=== PATIENT | male | born 1940 | race Caucasian/White ===

== ENCOUNTER 2017-12-01 06:39 | Emergency (ER) ==
[2017-12-01 06:46] VITALS: BP 179/102; TEMP 97.1; BMI 37.5
--- NOTE | 2017-12-01 08:07 | CT ---
EXAM: CT Abdomen without contrast. CT Pelvis without contrast. HISTORY: Right-sided abdominal pain. Constipation. COMPARISON: None available. TECHNIQUE: Multiple axial images of the abdomen and pelvis were obtained without intravenous contras t. Images were reformatted in the sagittal and coronal plane. FINDINGS: Please note that evaluation of the abdominal and pelvic structures is limited due to lack of intravenous contrast. Right lower lobe calcified granulomatous changes noted. Ground-glass opacities in the left lower lob e likely relate to subsegmental atelectasis. Advanced arthritic changes of the left hip are present. There has been previous right hip arthroplas ty. L4-S1 posterior fusion changes noted with extensive degenerative changes throughout the thoracol umbar spine. The liver, gallbladder, pancreas, spleen, and adrenal glands demonstrate normal contour. Nonobstruct ing left renal calculus measuring up to 0.5 cm noted without hydronephrosis. There is mild right hydronephrosis/hydroureter with associated fat stranding secondary to a 0.3 cm ob structing calculus near the right ureteral vesicle junction. Moderate amount of stool present in the right colon. There is no evidence for bowel obstruction or a cute inflammation. Colonic diverticulosis noted. The appendix is normal. Mild prostatic enlargement noted. Bladder is not well distended. Atherosclerotic calcifications present. No free fluid or fr ee air identified. IMPRESSION: 1. Mild right hydronephrosis secondary to a 0.3 cm distal right ureteral calculus near the ureteral vesicle junction. 2. Left nephrolithiasis. 3. Moderate amount of stool in the colon. 4. Diverticulosis.
--- NOTE | 2017-12-01 09:05 | ED.PDOC ---
General ED Provider: Dr. JOHANA JONES Chief Complaint: Abdominal Pain Stated Complaint: right lower abdominal pain, right flank pain Time Seen by Physician: 07:00 Mode of Arrival: Walk-In Information Source: Patient, Family Exam Limitations: No limitations Primary Care Provider: VICENTE FISCHER Nursing and Triage Documentation Reviewed and Agree: Yes Does patient meet sepsis criteria?: No System Inflammatory Response Syndrome: Not Applicable Sepsis Protocol: For patient's 13 years and over: Temp is 96.8 and below OR 101 and greater Pulse >90 BPM Resp >20/minute Acutely Altered Mental Status Are patient's symptoms suggestive of a new infection, such as: -Pneumonia -Skin, Soft Tissue -Endocarditis -UTI -Bone, Joint Infection -Implantable Device -Acute Abdominal Infection -Wound Infection -Meningitis -Blood Stream Catheter Infection -Unknown GI Complaint Exam - Abdominal Pain Complaint/Exam Onset: Gradual Duration: 1 day worse this AM Symptoms Are: Still present Timing: Intermittent Initial Severity: Moderate Current Severity: Moderate Location of Pain: RLQ, Suprapubic Radiates To: Reports: Flank (right) Character: Reports: Cramping Aggravating: Reports: None Alleviating: Reports: None Associated Signs and Symptoms: Reports: Back pain (see above ). Denies: Diaphoresis, Fever, Cough, Chest pain, Dizziness, Constipation, Blood in stool, Dysuria, Urinary frequency, Decreased urine output, Decreased appetite, Discharge, Nausea, Vomiting, Diarrhea, Decreased activity AAA Risk Factors: Reports: Hypertension Cardiac Risk Factors: Reports: Hypertension Testicular Torsion Risk Factors: Reports: None Surgical Obstruction Risk Factors: Reports: None Related Surgical History: Reports: None Abdominal Findings: Present: None Differential Diagnoses: Appendicitis, Bowel Obstruction, Constipation, Diverticulitis, Renal Colic Review of Systems - Review Of Systems Constitutional: Reports: No symptoms Eyes: Reports: No symptoms Ears, Nose, Mouth, Throat: Reports: No symptoms Respiratory: Reports: No symptoms Cardiac: Reports: No symptoms GI: Reports: Abdominal pain : Reports: Flank pain (right) Musculoskeletal: Reports: No symptoms Skin: Reports: No symptoms Neurological: Reports: No symptoms Endocrine: Reports: No symptoms Hematologic/Lymphatic: Reports: No symptoms All Other Systems: Reviewed and Negative Past Medical History - Past Medical History Previously Healthy: No Endocrine: Reports: Dyslipidemia Cardiovascular: Reports: Hypertension Respiratory: Reports: None Hematological: Reports: None Gastrointestinal: Reports: None Genitourinary: Reports: None Neuro/Psych: Reports: CVA Musculoskeletal: Reports: Arthritis, Back Pain Cancer: Reports: None - Surgical History General Surgical History: Reports: Orthopedic (right hip replacement), Back Surgery - Family History Family History: Reports: None - Social History Smoking Status: Former smoker Hx Substance Use: No Alcohol Screening: None - Immunizations Tetanus Shot up to Date: Yes Physical Exam - Physical Exam Appearance: Well-appearing, No pain distress, Well-nourished Eyes: RIGOBERTO, EOMI, Conjunctiva clear ENT: Ears normal, Nose normal, Oropharynx normal Respiratory: Airway patent, Breath sounds clear, Breath sounds equal, Respirations nonlabored Cardiovascular: RRR, Pulses normal, No rub, No murmur GI/: Soft, Nontender, No masses, Bowel sounds normal, No Organomegaly Musculoskeletal: Normal strength, ROM intact, No edema, No calf tenderness Skin: Warm, Dry, Normal color Neurological: Sensation intact, Motor intact, Reflexes intact, Cranial nerves intact, Alert, Oriented Psychiatric: Affect appropriate, Mood appropriate Interpretation - Radiology Interpretation Radiology Interpretation By: Radiologist Radiology Results: Positive (3mm right isded stone near ureter junction) Critical Care Note - Critical Care Note Total Time (mins): 0 Course - Course Hematology/Chemistry: 12/01/17 07:25 12/01/17 07:25 Orders, Labs, Meds: Lab Review 12/01/17 12/01/17 12/01/17 07:20 07:25 07:25 WBC 9.00 RBC 4.74 Hgb 14.8 Hct 44.7 MCV 94.3 H MCH 31.2 H MCHC 33.1 RDW Coeff of Leigha 12.6 Plt Count 237 Immature Gran % (Auto) 1.0 Neut % (Auto) 70.5 Lymph % (Auto) 14.6 [place] % (Auto) 9.7 Eos % (Auto) 3.4 Baso % (Auto) 0.8 Immature Gran # (Auto) 0.1 Neut # (Auto) 6.4 Lymph # (Auto) 1.3 [place]ard # (Auto) 0.9 Eos # (Auto) 0.3 Baso # (Auto) 0.1 Sodium 141 Potassium 4.4 Chloride 108 H Carbon Dioxide 23 Anion Gap 14.4 BUN 21 H Creatinine 1.14 H Estimated GFR (MDRD) 62.00 BUN/Creatinine Ratio 18.42 Glucose 107 H Calcium 9.0 Total Bilirubin 0.5 AST 31 ALT 23 Alkaline Phosphatase 88 Total Protein 7.5 Albumin 4.0 Globulin 3.5 Albumin/Globulin Ratio 1.14 Amylase 70 Lipase 44 Urine Color Yellow Urine Clarity Clear Urine pH 5.5 Ur Specific [place] 1.025 Urine Protein Negative Urine Glucose (UA) Negative Urine Ketones Negative Urine Blood 2+ Urine Nitrite Negative Urine Bilirubin Negative Urine Urobilinogen 0.2 Ur Leukocyte Esterase Negative Urine Microscopic RBC 10-20 Ur Squamous Epith Cells Not present Orders Category Date Time Status AMYLASE Stat LAB 12/01/17 07:25 Completed CBC W/ AUTO DIFF Stat LAB 12/01/17 07:25 Completed COMPREHENSIVE METABOLIC PANEL Stat LAB 12/01/17 07:25 Completed LIPASE Stat LAB 12/01/17 07:25 Completed URINALYSIS C & S IF INDICATED Stat LAB 12/01/17 07:[address] ABDOMEN/PELVIS WO CONTRAST Stat RADS 12/01/17 07:09 Completed Vital Signs: Temp Pulse Resp BP Pulse Ox 12/01/17 06:40 97.1 F L 72 18 179/102 H 94 L Departure - Departure Time of Disposition: 09:04 Disposition: HOME SELF-CARE Discharge Problem: Abdominal pain, Renal stones Instructions: Renal Colic (ED), Flank Pain (ED), How to Strain Your Urine (ED) , Kidney Stones (ED) Condition: Good Pt referred to PMD for follow-up: Yes IPMP verified?: No Additional Instructions: Please call your Family Physician as soon as possible to schedule a follow-up appointment. YOU HAVE A KIDNEY STONE ON THE RIGHT SIDE . YOU MUST SEE YOUR DOCTOR LIUDMILA. IF YOU HAVE PROBLEMS LIKE CANT URINATE AT ALL. BLOOD IN THE URINE, FEVER YOU MUST RETURN OR SEE OR SEE YOUR M.D. KIDNEY STONE OF THIS SIZE IS PASSABLE BUT NOTHING IN LIFE IS 100% SO DO NOT POST POND PROBLEMS OR BAD OUT COME CAN HAPPEN LIKE KIDNEY INJURY OR EVEN KIDNEY LOSS Allergies/Adverse Reactions: Allergies iodine Adverse Reaction (Verified 06/30/15 19:43) Penicillins Adverse Reaction (Verified 06/30/15 19:43) Home Medications: Ambulatory Orders Bumetanide [Bumex] 1 mg PO QDAC 03/11/14 Celecoxib [Celebrex] 200 mg PO BID 03/11/14 Clopidogrel Bisulfate [Plavix] 75 mg PO DAILY 03/11/14 Febuxostat [Uloric] 40 mg PO DAILY 03/11/14 Gemfibrozil [Lopid] 600 mg PO BID 03/11/14 Lisinopril 20 mg PO DAILY 03/11/14 Oxycodone HCl [Oxycontin] 40 mg PO BID 03/11/14 Oxycodone HCl/Acetaminophen [Percocet 10-325 mg Tablet] 1 tab PO QID PRN Ranitidine HCl [Zantac] 150 mg PO BIDAC 03/11/14
[2017-12-01] MEDS ORDERED: TORADOL IM STA (09:09)
== END 2017-12-01 09:43 | disposition home or self-care (01) ==
LOC: ED 06:39
DX: N20.0 Calculus of kidney (principal); I10 Essential (primary) hypertension; E78.5 Hyperlipidemia, unspecified; Z86.73 Personal history of transient ischemic attack (TIA), and cerebral infarction without residual deficits
CPT/HCPCS: 36415; 80053; 81001; 82150; 83690; 85025; 96372; 99283

== ENCOUNTER 2018-08-30 08:07 | Outpatient (CLI) | payer OTHER ==
--- NOTE | 2018-08-30 09:14 | DI ---
EXAM: Two views of the right knee. History: Right knee pain. Findings: No acute fracture or dislocation. Moderate to severe narrowing of the medial compartment. Moderate narrowing of the patellofemoral compartment and mild narrowing of the lateral compartment. There is marginal sclerosis and osteophyte formation. 3.7 cm ossification seen within the posterio r soft tissues. Impression: 1. No acute osseous abnormality. 2. 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 3. Large ossification seen within the posterior soft tissues of unknown etiology or clinical signifi cance.
--- NOTE | 2018-08-30 09:16 | DI ---
EXAM: Two views of the left knee. History: Left knee pain. Findings: No acute fracture or dislocation. Mild to moderate tricompartmental joint space narrowing with small osteophytes. No abnormal calcifications or radiopaque foreign bodies. Impression: 1. No acute osseous abnormality. 2. Mild to moderate tricompartmental osteoarthritis
--- NOTE | 2018-08-30 09:17 | DI ---
EXAM: Two views of the left hip. History: Left hip pain. Findings: No acute fracture or dislocation. 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 Impression: 1. No acute osseous abnormality. 2. Severe end-stage degenerative changes of the left hip joint
--- NOTE | 2018-08-30 09:18 | DI ---
EXAM: Two views of the right hip. History: Right hip pain. Findings: No acute fracture or dislocation. Grossly intact right total hip arthroplasty hardware. Partially visualized postsurgical changes of the sacrum. Impression: No acute osseous abnormality
--- NOTE | 2018-08-30 09:23 | DI ---
EXAM: Seven views of the lumbar spine. History: Lower back pain. Findings: Severe end-stage degenerative changes of the left hip joint. Hardware seen within the rig ht hip. Air distended loop of colon with U shape. Scattered colonic stool. Atherosclerotic vascula r calcifications. Grossly intact posterior fusion hardware from L4-S1. 8mm anterolisthesis of L4 on L5. Severe multilevel disc space narrowing with endplate sclerosis and osteophyte formation. No ac beba fracture. No instability identified with flexion or extension. Impression: 1. Unexpected finding: Dilated loop of colon could represent ileus but cannot exclude sigmoid volvul us. Recommend further evaluation with CT abdomen pelvis with IV contrast. 2. Grossly intact hardware. 3. Grade 1 anterolisthesis of L4 on L5. 4. Severe degenerative disc disease. 5. Atherosclerotic vascular disease. 6. Severe end-stage arthritis of the left hip joint
== END 2018-08-30 08:08 | disposition home or self-care (01) ==
LOC: RAD 08:07 → LAB 08:08
PROVIDERS: ATTEND Pain Medicine Interventional Pain Medicine
DX: M16.0 Bilateral primary osteoarthritis of hip (principal); M17.0 Bilateral primary osteoarthritis of knee; M51.16 Intervertebral disc disorders with radiculopathy, lumbar region; M51.36 Other intervertebral disc degeneration, lumbar region
CPT/HCPCS: 36415; 82565

== ENCOUNTER 2018-09-06 10:38 | Outpatient (CLI) ==
--- NOTE | 2018-09-06 13:27 | CT ---
EXAM: CT of the abdomen pelvis without contrast History: Abdominal pain with difficulty swallowing. Comparison: CT abdomen pelvis 12/01/2017 Technique: Multiplanar CT images through the abdomen pelvis were obtained without the administration of IV contrast Findings: Heart is mildly enlarged. Lung bases are free of consolidation. Subsegmental atelectasis is seen within the lower lungs. No acute osseous abnormalities. Severe end-stage degenerative presley ges of the left hip joint. Right hip arthroplasty hardware is seen in place. Postsurgical changes o f the lumbosacral spine. Severe degenerative disc disease within the upper lumbar spine. Atherosclerotic vascular calcifications. No gallstones identified by CT. No peripancreatic inflamma tion. There is some atrophy of the pancreas. No focal liver or splenic lesions. 2 mm calculus with in the inferior pole of the right kidney. 2 mm calculus within the right renal pelvis. No hydroneph rosis. The distal ureters are not well seen due to streak artifact from the hip hardware. No bowel obstruction. No free air and no ascites. The bladder is not well seen due to the hip hardware but t here is no obvious bladder wall thickening. Prominent prostate. No perirectal inflammation. Coloni c diverticulosis. The visualized appendix is not dilated or inflamed. No abdominal aortic aneurysm. No pathologically enlarged lymph nodes. Impression: 1. No acute intra-abdominal or pelvic process. 2. Colonic diverticulosis. 3. Nonobstructing right nephrolithiasis. 4. Prominent prostate. 5. Atherosclerotic vascular disease. 6. Mild cardiomegaly. 7. Severe end-stage arthritis of the left hip joint
== END 2018-09-06 10:39 | disposition home or self-care (01) ==
LOC: RAD 10:38
PROVIDERS: ATTEND Family Medicine
DX: R93.5 Abnormal findings on diagnostic imaging of other abdominal regions, including retroperitoneum (principal); R10.9 Unspecified abdominal pain

== ENCOUNTER 2022-01-24 12:09 | Inpatient (IN) ==
[2022-01-24] MEDS ORDERED: NITROSTAT SL PRN (13:57)
[2022-01-24] MEDS ORDERED: ATROPINE SULFATE PFS IVP PRN (13:57)
[2022-01-24] MEDS ORDERED: TYLENOL PO PRN (13:57)
[2022-01-24 14:08] VITALS: BMI 40.4
[2022-01-24 14:15] LABS: BASOPHILS # (AUTO) 0.1 K/uL (0-0.2); BASOPHILS % (AUTO) 0.8 % (0.0-3.0); EOSINOPHILS # (AUTO) 0.3 K/ul (0.0-0.7); EOSINOPHILS % (AUTO) 3.8 % (0.0-7.0); HEMATOCRIT 44.6 % (42.0-52.0); HEMOGLOBIN 14.3 g/dl (14.0-18.0); IMMATURE GRANULOCYTE # (AUTO) 0.1 (0.0-1.0); IMMATURE GRANULOCYTE % (AUTO) 1.2 % (0.0-5.0); LYMPHOCYTES # (AUTO) 1.1 K/uL (0.60-3.4); LYMPHOCYTES % (AUTO) 14.3 (10.0-50.0); MEAN CORPUSCULAR HEMOGLOBIN 31.8 pg (27.0-31.0); MEAN CORPUSCULAR HGB CONC 32.1 (31.8-35.4); MEAN CORPUSCULAR VOLUME 99.1 fl (80.0-94.0); MONOCYTES # (AUTO) 0.6 K/uL (0.4-2.0); MONOCYTES % (AUTO) 7.8 (0-10); NEUTROPHILS # (AUTO) 5.6 K/ul (2.0-6.9); NEUTROPHILS % (AUTO) 72.1 % (42.2-75.2); PLATELET COUNT 193 10^3/uL (140-440); RDW COEFFICIENT OF VARIATION 13.7 % (11.6-14.8); WHITE BLOOD COUNT 7.81 K/ul (4.2-10.2)
[2022-01-24 14:38] LABS: ALANINE AMINOTRANSFERASE 18.3 U/L (0-50); ALBUMIN 3.46 g/dL (3.5-5.0); ALKALINE PHOSPHATASE 88.8 U/L (56-119); ASPARTATE AMINO TRANSFERASE 22.6 U/L (17-59); BILIRUBIN,TOTAL 0.49 mg/dL (0.2-1.3); BLOOD UREA NITROGEN 18.6 mg/dL (9-20); CALCIUM 8.68 mg/dL (8.4-10.2); CARBON DIOXIDE 27.5 mmol/L (22-30.0); CREATINE KINASE 74.4 U/L (55-170); CREATININE 0.93 mg/dL (0.60-1.10); GLUCOSE 169.7 mg/dL (74-106); POTASSIUM 3.85 mmol/L (3.5-5.1); SODIUM 143.8 mmol/L (134.5-145); TOTAL PROTEIN 6.49 g/dL (6.3-8.2)
[2022-01-24 14:49] LABS: TROPONIN I < 0.012 ng/ml (0.0000-0.120)
[2022-01-24 15:47] LABS: BILIRUBIN,URINE Negative (NEGATIVE); CLARITY,URINE Clear (CLEAR); COLOR,URINE Yellow (YELLOW); GLUCOSE, URINE (UA) Negative (NEGATIVE); KETONES,URINE Negative (NEGATIVE); LEUKOCYTE ESTERASE ,URINE Negative (NEGATIVE); NITRITE,URINE Negative (NEGATIVE); PH,URINE 5.5 (5-9); PROTEIN,URINE Negative (NEGATIVE); URINE, BLOOD 1+ (NEGATIVE)
[2022-01-24] MEDS: LASIX IVP SCH (16:49)
--- NOTE | 2022-01-24 19:17 | CT ---
EXAM: CT of the abdomen and pelvis without contrast. TECHNIQUE: CT of the abdomen and pelvis was performed without the use of contrast. Multiplanar refo rmats were performed. HISTORY: Abdominal pain COMPARISON: 09/06/2018 FINDINGS: Evaluation of solid organs and blood vessels is suboptimal without the benefit of contrast. Imaged lower thorax: Coronary atherosclerosis. Large pericardial fat pad. Liver: Unremarkable. Gallbladder/Bile Ducts: No biliary dilation. Gallbladder is unremarkable. Spleen: Unremarkable. Pancreas: Unremarkable. Adrenals: Unremarkable. Kidneys/Ureters: Nephrolithiasis in the lower poles bilaterally without obstruction. There is a stone within the right ureter at the ureterovesical junction. Bowel/mesentery/peritoneum: No bowel obstruction. Normal appendix. Diverticulosis is present. There is subtle stranding in the fat adjacent to the sigmoid colon proximally. This may be chronic however this is unchanged from older study of 2019 and may be patient's baseline. Correlate with site of pa in. Retroperitoneum/vessels: No aortic aneurysm. No adenopathy. Pelvis: Bladder wall contours normal. Bones/body wall: Advanced degenerative changes are present within the left hip. Multilevel lumbar dis ease is present. IMPRESSION: 1. Nephrolithiasis with a stone less than 3 mm in size in the distal right ureter without proximal ob structive changes. 2. Haziness in the pericolonic fat in the proximal sigmoid colon. While early diverticulitis is not excluded this appears to be unchanged from 2019. All CT scans are performed using dose optimization techniques as appropriate to the performed exam an d includes at least one of the following: Automated exposure control, adjustment of the mA and/or kV according to size, and the use of iterative reconstruction technique. All CT scans are performed using dose optimization techniques as appropriate to the performed exam an d include at least one of the following: Automated exposure control, adjustment of the mA and/or kV according t o size, and the use of iterative reconstruction technique.
[2022-01-24] MEDS: PEPCID PO SCH (19:20)
[2022-01-24] MEDS: FLOMAX PO SCH (21:07)
[2022-01-24] MEDS: CELEBREX PO SCH (21:07)
[2022-01-24 22:16] LABS: CREATINE KINASE 91.3 U/L (55-170)
[2022-01-24 22:31] LABS: TROPONIN I < 0.012 ng/ml (0.0000-0.120)
[2022-01-25 05:28] LABS: BASOPHILS # (AUTO) 0.1 K/uL (0-0.2); BASOPHILS % (AUTO) 0.8 % (0.0-3.0); EOSINOPHILS # (AUTO) 0.4 K/ul (0.0-0.7); HEMATOCRIT 44.8 % (42.0-52.0); HEMOGLOBIN 14.5 g/dl (14.0-18.0); IMMATURE GRANULOCYTE # (AUTO) 0.1 (0.0-1.0); LYMPHOCYTES # (AUTO) 1.4 K/uL (0.60-3.4); LYMPHOCYTES % (AUTO) 15.3 (10.0-50.0); MEAN CORPUSCULAR HEMOGLOBIN 31.6 pg (27.0-31.0); MEAN CORPUSCULAR HGB CONC 32.4 (31.8-35.4); MEAN CORPUSCULAR VOLUME 97.6 fl (80.0-94.0); MONOCYTES % (AUTO) 10.3 (0-10); NEUTROPHILS # (AUTO) 6.5 K/ul (2.0-6.9); NEUTROPHILS % (AUTO) 68.6 % (42.2-75.2); PLATELET COUNT 206 10^3/uL (140-440); RDW COEFFICIENT OF VARIATION 13.4 % (11.6-14.8); RED BLOOD COUNT 4.59 10^6/ul (4.70-6.10); WHITE BLOOD COUNT 9.42 K/ul (4.2-10.2)
[2022-01-25] MEDS: LASIX IVP SCH ×2 (05:45→17:38)
[2022-01-25] MEDS: PEPCID PO SCH ×2 (05:45→16:34)
[2022-01-25 05:46] LABS: ALBUMIN 3.59 g/dL (3.5-5.0); BILIRUBIN,TOTAL 0.69 mg/dL (0.2-1.3); BLOOD UREA NITROGEN 22.1 mg/dL (9-20); CALCIUM 8.57 mg/dL (8.4-10.2); CARBON DIOXIDE 28.7 mmol/L (22-30.0); CHLORIDE 108.8 mmol/L (98-107); GLUCOSE 81.5 mg/dL (74-106); POTASSIUM 3.5 mmol/L (3.5-5.1); SODIUM 142.9 mmol/L (134.5-145); TOTAL PROTEIN 6.78 g/dL (6.3-8.2)
--- NOTE | 2022-01-25 08:14 | CT ---
EXAMINATION: CT LUMBAR SPINE WITHOUT CONTRAST HISTORY: Low back pain and right-sided weakness. Prior fusion. TECHNIQUE: Computed tomography (CT) of the lumbar spine was performed according to standard protocol without intravenous contrast. Contrast Dose: None CT Dose Reduction Techniques Performed: Yes COMPARISON: Lumbar spine radiographs 08/30/2018 FINDINGS: Numbering/Segmentation: Last fully formed disk space is designated L5-S1. Alignment: Mild S-shaped curvature. Grade 1 retrolisthesis of T12-L3. Post-Surgical Changes/Hardware: L4-S1 posterior lumbar fusion with decompressive laminectomies. No h ardware fracture or loosening. Near complete anterior and posterior ankylosis. Bones: No acute fracture. Mild chronic anterior wedge compression deformities of T12, L1, L2, and L3 without retropulsion. Disk Spaces: Moderate to severe degenerative disc disease of T12-L3 with narrowing, endplate sclerosi s, and vacuum disc phenomenon. Soft Tissues: Postsurgical changes in the posterior paraspinal soft tissues from L3-S1, partially hoa ged due to metallic streak artifact. No fluid collection. Limited Abdomen: No renal lesion. Abdominal aorta is normal in caliber. Visualized Lower Thoracic Spine: There is severe bilateral T11-T12, moderate to severe bilateral T12- L1 neural foraminal stenosis. There is moderate T11-T12 and T12-L1 spinal canal stenosis. Level By Level Degenerative Changes: - L1-L2: Disc osteophyte complex. There is moderate to severe bilateral facet arthropathy. There is severe bilateral neural foraminal stenosis. There is moderate to severe spinal canal stenosis. - L2-L3: Disc osteophyte complex. There is severe bilateral facet arthropathy. There is severe bila teral neural foraminal stenosis. There is severe spinal canal stenosis. - L3-L4: Disc bulge. There is severe bilateral facet arthropathy. There is moderate bilateral neura l foraminal stenosis. There is moderate to severe spinal canal stenosis. - L4-L5: Fused level with facet hypertrophy. Poorly imaged due to metallic streak artifact. - L5-S1: Fused level with facet hypertrophy. Poorly imaged due to metallic streak artifact. Limited Sacrum/Pelvis: Mild degenerative changes of the bilateral sacroiliac joints with vacuum pheno russell. IMPRESSION: Advanced multilevel degenerative changes of the lower thoracic and lumbar spine as detailed including severe spinal canal stenosis at L2-L3 and multiple levels of severe neural foraminal stenosis. Postsurgical changes of L3-S1 posterior fusion and decompression. No hardware fracture or loosening. All CT scans are performed using dose optimization techniques as appropriate to the performed exam an d include at least one of the following: Automated exposure control, adjustment of the mA and/or kV according t o size, and the use of iterative reconstruction technique.
--- NOTE | 2022-01-25 08:15 | CT ---
EXAM: CT chest without intravenous contrast 01/24/2022. Sagittal and coronal reformatted images obt ained HISTORY: Shortness of air COMPARISON: 01/23/2022 FINDINGS: The heart size appears within normal limits. There is no pericardial effusion. There is no pulmonary consolidation. No pleural effusion. No pneumothorax. Limited views of the up per abdomen shows no acute abnormality. There is no acute osseous abnormality. IMPRESSION: No acute cardiopulmonary process. All CT scans are performed using dose optimization techniques as appropriate to the performed exam an d include at least one of the following: Automated exposure control, adjustment of the mA and/or kV according t o size, and the use of iterative reconstruction technique.
[2022-01-25] MEDS: CELEBREX PO SCH ×2 (08:38→16:34)
[2022-01-25] MEDS: ULORIC PO SCH (08:38)
[2022-01-25] MEDS: LOVENOX SUBCUT SCH (08:39)
[2022-01-25] MEDS: ZESTRIL PO SCH (08:39)
[2022-01-25] MEDS: PLAVIX PO SCH (08:39)
--- NOTE | 2022-01-25 11:34 | US ---
EXAM: Ultrasound venous Doppler right and left lower extermity HISTORY: Edema bilateral lower extremity COMPARISON: None TECHNIQUE: Venous duplex ultrasound of the right and left lower extremity was performed. Greyscale, color doppler, spectral doppler imaging performed. FINDINGS: There is normal color flow and compression of the right and left common femoral, greater s aphenous, profunda femoral, femoral, popliteal, peroneal, posterior tibial, and anterior tibial veins without evidence of intraluminal thrombus. IMPRESSION: No right or left lower extremity deep venous thrombosis.
--- NOTE | 2022-01-25 13:31 | RS.OTINEVL ---
Subjective - Patient information Date of Evaluation: 01/25/22 Date of Arrival on Unit: 01/24/22 Admitted From:: Home Diagnosis: Leg weakness PRECAUTIONS: Fall risk Usual Living Arrangement: With Spouse Living Arrangement Comments: Lives with spouse Home Environment: House, Stairs (few), Ramp Medical History: CVA/TIA, Diabetes, Arthritis Medical History Comments:: Pt has back pain, edema of the LLE. Back surgery, Right numb fingers, CVA, Gout Subjective Information/ Patient Comments:: Pt reports he cannot control the RLE. - Level of function Prior to this admission, the patient could do the following:: Independent Selfcare, Independent ADL's, Independent Ambulation, Partially Dependent Ambulation, Perform Employment Training Specialist/Cooking, Drive, Participated in Social Activities Outside home, Volunteer/Work Current Equipment Used at Home: hospital bed, shower chair Pain Assessment - Pain Pain Location Body Site: Back Pain Aggravating Factors: ADL's, Standing, Walking Pain Alleviating Factors: Medication, Position Change Interventions - Objective Patient Orientation: Person, Place, Situation Current Interventions: IV's, Oxygen Interventions - ROM Right Upper Extremity AROM: Slight limitation Left Upper Extremity AROM: Slight limitation - Strength Right Upper Extremity Strength: Mild Weakness Left Upper Extremity Strength: Mild Weakness - Sensation Right Upper Extremity Sensation: Intact/Normal Left Upper Extremity Sensation: Intact/Normal Balance - Sitting Balance Static Sitting Balance: Fair Dynamic Sitting Balance: Fair - Standing Balance Static Standing Balance: Poor Dynamic Standing Balance: Poor ADL Skills - Self Feeding Self Feeding: Independent - Grooming Grooming: Min Assist - Bathing Bathing UE: Min Assist Bathing LE: Min Assist Bathing Set-up: Shower - Dressing Dressing UE: Supervision Dressing LE: Max Assist - Toilet Management Toilet Hygiene: Min Assist Toilet Clothing Management: Min Assist Functional Mobility - Bed Mobility Rolling R/L: Independent - Transfers Sit to Stand: CGA Stand to Sit: Min Assist Stand Pivot Transfers: Min Assist - Ambulation Weight Bearing Status: FWB Assistive Device Used: Rolling Walker Assistance needed with Ambulation: Min Assist, 1 person assist - Safety Awareness Safety Awareness: Poor FORREST INDEX SCORE: . Additional Treatment Performed - Time with patient Length of Evaluation: 19 Total treatment time: 19 Activities Do you enjoy playing games?: Yes Would you be interested in leaving your room for activities?: Yes Would you enjoy group activities?: Yes Do you have difficulty with your vision?: Yes Patient Interests:: Watching Television, Visiting/Socializing Patient Education Patient Education: Education of diagnosis, Education of Plan of Care Teaching Recipient: Patient Teaching Methods: Discussion Assessment Problem List:: Decreased level of function, Decreased safety/Risk of falls, Weakness, Pain limits previous level of function Rehab Potential: Fair Further Therapy Indicated?: Yes Evaluation Complexity: HISTORY: Medium, EXAM OF BODY SYSTEMS: Medium, CLINICAL DECISION MAKING: Medium Patient's Goal(s): To be pain free and able to control the RLE and RUE for ADLS. Short Term Goals - Goals GOAL 1: Pt to complete sit to stand SUP with RW. Goal to be met by: 01/28/22 GOAL 2: Pt to complete BLE dressing with AD CGA. Goal to be met by: 01/28/22 GOAL 3: Pt to increase BUE strength to 4/5. Goal to be met by: 01/28/22 [facility] Goals GOAL 1: Pt to complete sit to stand Indep. with RW. Goal to be met by: 01/31/22 GOAL 2: Pt to complete BLE dressing with AD independently. Goal to be met by: 01/31/22 GOAL 3: Pt to increase BUE strength to 4+/5. Goal to be met by: 01/31/22 Plan Plan of Care: Therapeutic EX, Neuromuscular Re-Educ, Therapeutic Activity, Self- Care/Home Management Frequency of Treatment: 1-2 X day, as tolerated Duration of Treatment: 1 Week Anticipated Discharge Destination: Home Treatment Diagnosis (ICD 10 Codes): M62.81 Weakness, Z74.1 Need for assistance with personal care. Has the Physician been added for Co-signature?: Yes
--- NOTE | 2022-01-25 14:45 | RS.PTINEVL ---
Subjective - Patient information Date of Evaluation: 01/25/22 Date of Arrival on Unit: 01/24/22 Admitted From:: Home Diagnosis: R LE weakness and edema Usual Living Arrangement: With Spouse Living Arrangement Comments: works as a nurse at [employer]. Home Environment: House, Stairs (few), Rail Medical History: Hypertension, CVA/TIA, Arthritis Medical History Comments:: gout Surgical History: Hip Replacement (R THR), Lumbar Spine Medications: see chart Subjective Information/ Patient Comments:: pt states that he always has back pain however recently has been in RLE and had increased swelling. - Level of function Prior to this admission, the patient could do the following:: Independent Selfcare, Independent ADL's, Independent Ambulation, Partially Dependent Ambulation, Perform Beater Room Helper/Cooking, Drive, Participated in Social Activities Outside home, Volunteer/Work Abilities prior to this admission: pt amb with rollator prior to admission Current Level of Function: Partially Dependent Current Equipment Used at Home: hospital bed, shower chair. pt may benefit from w/c for longer distances Pain Assessement - Location RLE Description: Radiating, Aching Duration: 6 Pain Behavior: Guarding, Rubbing Site Pain Aggravating Factors: Changing Position, Exercise/Activity Pain Alleviating Factors: Medication Interventions - Objective Patient Orientation: Person, Place, Time, Situation Current Interventions: Telemetry Observation: pt with rounded shlds, increased kyphosis with decreased lumbar lordosis. pitting edema BLE R >L Range of Motion - ROM Right Upper Extremity AROM: Slight limitation (limitations with shld flex) Left Upper Extremity AROM: Slight limitation (limitations with shld flex) Right Lower Extremity AROM: Slight limitation (limited R knee and Hip ROM due to pain) Left Lower Extremity AROM: WFL's Muscle Strength - Muscle Strength Right Upper Extremity Strength: Mild Weakness (grossly 4/5) Left Upper Extremity Strength: Mild Weakness (grossly 4/5) Right Lower Extremity Strength: Mild Weakness (hip flex 3-/5, knee flex/ext 4- /5, ankle DF/PF 4-/5) Left Lower Extremity Strength: Mild Weakness (hip flex 4/5, knee flex/ext 4+/5, ankle DF/PF 4+/5) Sensation - Sensation Right Upper Extremity Sensation: Impaired (n/t R hand) Left Upper Extremity Sensation: Intact/Normal Right Lower Extremity Sensation: Impaired Left Lower Extremity Sensation: Impaired (n/t B feet) Palpation Palpation Findings: Tenderness (tenderness to palpation RLE and R hand ) Balance - Sitting Balance and Reactions Static Sitting Balance: Good Dynamic Sitting Balance: Fair (fair) - Standing Balance and Reactions Static Standing Balance: Poor Dynamic Standing Balance: Poor Standing Equilibrium Reactions: Delayed Left, Delayed Right Standing Protective Reactions: Delayed Left, Delayed Right Functional Mobility - Bed Mobility Comments:: pt seen sitting at side of bed - Transfers Sit to Stand: CGA Stand to Sit: CGA - Safety Awareness Safety Awareness: Poor FORREST INDEX SCORE: n/a Ambulation - Ambulation Assistive Device Used: Rolling Walker Orthotic/Prosthetic Device: No Distance: 30ft Assistance needed with Ambulation: CGA Gait Deviations: Forward posture, Short stride, Deviates from path Ambulation Comments: pt is somewhat impulsive. pt demonstrates R genu valgus, RLE internal rotation, increased lat sway. Factors Affecting Ambulation: Decreased Balance, Pain, Weakness, Decreased Safety, Limited Endurance Treatment time - Time with patient Length of Evaluation: 20 Total treatment time: 27 Patient Education - Education Patient Education: Activity Modification, Education of Plan of Care Teaching Recipient: Patient Teaching Methods: Discussion Assessment - Assessment Problem List:: Decreased level of function, Requires training/education, Decreased safety/Risk of falls, Weakness, Pain limits previous level of function Rehab Potential: Good Further Therapy Indicated?: Yes Candidate for Swing Bed for Therapy Services?: Feel pt may not be a candidate for swing bed due to limited prior level of function. Evaluation Complexity: HISTORY: Medium, EXAM OF BODY SYSTEMS: Medium, CLINICAL PRESENTATION: Medium, CLINICAL DECISION MAKING: Medium Patient's Goal(s): get stronger and go back home. Short Term Goals GOAL #1: pt independent with rolling and scooting in bed. Goal to be met by: 01/27/22 GOAL #2: Transfer sup to/from sit CGA Goal to be met by: 01/27/22 GOAL #3: Transfer sit to/from stand SBA Goal to be met by: 01/27/22 GOAL #4: pt amb 70ft with rwx with CGA with no LOB. Goal to be met by: 01/27/22 GOAL #5: Improve RLE strength 4/5 Goal to be met by: 01/27/22 [facility] Goals GOAL #1: Transfer sup to/from sit to/from stand independently. Goal to be met by: 01/29/22 GOAL #2: pt amb functional household distances with rwx with SBA with no LOB. Goal to be met by: 01/29/22 GOAL #3: Improve dyn stand balance fair - Goal to be met by: 01/29/22 Plan Plan of Care: Therapeutic EX, Therapeutic Activity Other:: gait training Frequency of Treatment: 1-2 X day, as tolerated Duration of Treatment: 4 days Anticipated Discharge Destination: Home Treatment Diagnosis (ICD 10 Codes): difficulty walking R 26.2. impaired balance R 26.81. weakness M62.81. risk of falls z91.81 Has the Physician been added for Co-signature?: Yes
--- NOTE | 2022-01-25 18:25 | PCM ---
Chief Complaint Chief Complaint: my leg is swollen and weak and it hurts History of Present Illness History of Present Illness: Mr Daniel is a pleasant 81 yr old male who presents with worsening lower back pain with weakness in his leg. he has trouble with ambulation. He also notes pain and swelling in both extremties without cp or dyspnea Review of Systems Constitutional: Reports Weakness Eyes: Reports No symptoms Ears: Reports No symptoms Nose: Reports No symptoms Throat: Reports No symptoms Mouth: Reports No symptoms Respiratory: Reports No symptoms Cardiovascular: Reports No symptoms Gastrointestinal: Reports No symptoms Genitourinary: Reports No symptoms Neurological: Reports Weakness and Problems with walking Musculoskeletal: Reports Pain Skin: Reports No symptoms Immunology: Reports No symptoms Hematology: Reports No symptoms Endocrine: Reports No symptoms Psychiatric: Reports No symptoms Habits: Reports Tobacco use, Alcohol use and Other Allergies Allergies Allergy/AdvReac Type Severity Reaction Status Date / Time Iodinated Contrast Media AdvReac CONVULSIONS Verified 01/25/22 18:19 iodine AdvReac CONVULSIONS Verified 01/25/22 18:19 Penicillins AdvReac Unknown Verified 01/25/22 18:19 [facility] Medical History (Updated 01/25/22 @ 18:22 by VICENTE FISCHER MD) Arthritis Gout HTN (hypertension) Leg edema Low back pain potentially associated with spinal stenosis Prostate enlargement Stomach ulcer Stroke Surgical History History of right hip replacement Previous back surgery Family History Mother CHF (congestive heart failure) FATHER Heart problem Social History Smoking and tobacco status: Former smoker Smokeless tobacco user: chewing tobacco Quit status: quit date established Medications Medications: Medications Generic Name Dose Route Start Last Admin Trade Name Freq PRN Reason Stop Dose Admin Acetaminophen 650 mg 01/24/22 13:57 Acetaminophen 325 Mg Tablet PO Q4H PRN Headache Atropine Sulfate 0.5 mg 01/24/22 13:57 Atropine Sulfate Inj 1 Mg/10 Ml Disp.Syrin IVP ONCE PRN Symptomatic Bradycardia Celecoxib 200 mg 01/25/22 17:00 01/25/22 16:34 Celecoxib 100 Mg Capsule PO 200 mg BIDWM ELVIS Administration Clopidogrel Bisulfate 75 mg 01/25/22 09:00 01/25/22 08:39 Clopidogrel Bisulfate 75 Mg Tablet PO 75 mg DAILY ELVIS Administration Dexamethasone Sodium Phosphate 4 mg 01/25/22 21:00 Dexamethasone Sod Phos 4 Mg/Ml Inj IVP Q8HR [facility] Enoxaparin Sodium 40 mg 01/25/22 09:00 01/25/22 08:39 Enoxaparin Sodium 40 Mg/0.4 Ml Syr SUBCUT 40 mg DAILY ELVIS Administration Famotidine 40 mg 01/24/22 17:00 01/25/22 16:34 Famotidine 20 Mg Tablet PO 40 mg BIDAC ELVIS Administration Febuxostat 40 mg 01/25/22 09:00 01/25/22 08:38 Febuxostat 40 Mg Tablet PO 40 mg DAILY ELVIS Administration Furosemide 40 mg 01/24/22 17:00 01/25/22 17:38 Furosemide Inj 40 Mg/4 Ml Vial IVP 40 mg BIDAC ELVIS Administration Lisinopril 20 mg 01/25/22 09:00 01/25/22 08:39 Lisinopril 10 Mg Tablet PO 20 mg DAILY ELVIS Administration Nitroglycerin 0.4 mg 01/24/22 13:57 Nitroglycerin 0.4 Mg Tab.Subl SL Q5MIN X 3 DOSES PRN Chest Pain Oxycodone/Acetaminophen 1 tab 01/25/22 18:14 Oxycodone/Acetaminophen 5/325 Mg Tablet PO Q6H PRN MODERATE PAIN Sodium Chloride 1 syr 01/24/22 21:00 01/25/22 13:45 0.9% Sodium Chloride 10 Ml Disp.Syrin IVF 1 syr Q8HR ELVIS Administration Tamsulosin HCl 0.4 mg 01/24/22 21:00 01/24/22 21:07 Tamsulosin Hcl 0.4 Mg Cap.Er.24h PO 0.4 mg BEDTIME ELVIS Administration Body Composition Height: 5 ft 7 in Weight: 258 lb Body Mass Index (BMI): 40.4 Vital Signs Temperature: 98.0 F Pulse Rate: 95 Respiratory Rate: 12 Blood Pressure: 128/83 O2 Sat by Pulse Oximetry: 96 Physical Examination Appearance: Reports Well-appearing and Obese Ill-appearing: None Pain Distress: Moderate Eyes: Reports RIGOBERTO and EOMI ENT: Reports Ears normal and Nose normal Neck: Supple Respiratory: Reports Airway patent, Breath sounds clear and Breath sounds equal Cardiovascular: Reports RRR, Pulses normal, No rub and No murmur GI/: Reports Soft, Nontender, No masses and Bowel sounds normal Musculoskeletal: Reports Limited ROM, Limited strength and Edema Skin: Reports Warm and Dry Neurological: Reports Cranial nerves intact, Alert, Oriented, Abnormal reflexes and Focal Deficit Psychiatric: Reports Affect appropriate and Mood appropriate Lab/Tests/Diagnostic Imaging Lab/Tests/Diagnostic Imaging: Lab Review 01/24/22 01/24/22 01/24/22 12:24 14:10 14:10 WBC 7.81 RBC 4.50 L Hgb 14.3 Hct 44.6 MCV 99.1 H MCH 31.8 H MCHC 32.1 RDW Coeff of Leigha 13.7 Plt Count 193 Immature Gran % (Auto) 1.2 Neut % (Auto) 72.1 Lymph % (Auto) 14.3 George % (Auto) 7.8 Eos % (Auto) 3.8 Baso % (Auto) 0.8 Neut # (Auto) 5.6 Lymph # (Auto) 1.1 George # (Auto) 0.6 Eos # (Auto) 0.3 Baso # (Auto) 0.1 Immature Gran # (Auto) 0.1 Sodium 143.8 Potassium 3.85 Chloride 111.0 H Carbon Dioxide 27.5 Anion Gap 9.15 BUN 18.6 Creatinine 0.93 Estimated GFR (MDRD) 78.00 BUN/Creatinine Ratio 20.00 Glucose 169.7 H D Calcium 8.68 Total Bilirubin 0.49 AST 22.6 ALT 18.3 Alkaline Phosphatase 88.8 Ammonia Total Creatine Kinase 74.4 Troponin I < 0.012 NT-Pro-B Natriuret Pep 47.500 Total Protein 6.49 Albumin 3.46 L Globulin 3.03 Albumin/Globulin Ratio 1.14 Urine Color Urine Clarity Urine pH Ur Specific [place] Urine Protein Urine Glucose (UA) Urine Ketones Urine Blood Urine Nitrite Urine Bilirubin Urine Urobilinogen Ur Leukocyte Esterase Urine Microscopic RBC Ur Squamous Epith Cells SARS CoV-2 RNA Rapid ZACHARY Negative 01/24/22 01/24/22 01/24/22 14:26 15:32 22:00 WBC RBC Hgb Hct MCV MCH MCHC RDW Coeff of Leigha Plt Count Immature Gran % (Auto) Neut % (Auto) Lymph % (Auto) George % (Auto) Eos % (Auto) Baso % (Auto) Neut # (Auto) Lymph # (Auto) George # (Auto) Eos # (Auto) Baso # (Auto) Immature Gran # (Auto) Sodium Potassium Chloride Carbon Dioxide Anion Gap BUN Creatinine Estimated GFR (MDRD) BUN/Creatinine Ratio Glucose Calcium Total Bilirubin AST ALT Alkaline Phosphatase Ammonia < 8.7 L Total Creatine Kinase 91.3 Troponin I < 0.012 NT-Pro-B Natriuret Pep Total Protein Albumin Globulin Albumin/Globulin Ratio Urine Color Yellow Urine Clarity Clear Urine pH 5.5 Ur Specific [place] >=1.030 Urine Protein Negative Urine Glucose (UA) Negative Urine Ketones Negative Urine Blood 1+ H Urine Nitrite Negative Urine Bilirubin Negative Urine Urobilinogen 1.0 H Ur Leukocyte Esterase Negative Urine Microscopic RBC 2-5 Ur Squamous Epith Cells 2-5 SARS CoV-2 RNA Rapid ZACHARY 01/25/22 01/25/22 05:00 05:00 WBC 9.42 RBC 4.59 L Hgb 14.5 Hct 44.8 MCV 97.6 H MCH 31.6 H MCHC 32.4 RDW Coeff of Leigha 13.4 Plt Count 206 Immature Gran % (Auto) 1.0 Neut % (Auto) 68.6 Lymph % (Auto) 15.3 George % (Auto) 10.3 H Eos % (Auto) 4.0 Baso % (Auto) 0.8 Neut # (Auto) 6.5 Lymph # (Auto) 1.4 George # (Auto) 1.0 Eos # (Auto) 0.4 Baso # (Auto) 0.1 Immature Gran # (Auto) 0.1 Sodium 142.9 Potassium 3.50 Chloride 108.8 H Carbon Dioxide 28.7 Anion Gap 8.90 BUN 22.1 H Creatinine 1.00 Estimated GFR (MDRD) 72.00 BUN/Creatinine Ratio 22.10 Glucose 81.5 D Calcium 8.57 Total Bilirubin 0.69 AST 22.0 ALT 20.0 Alkaline Phosphatase 94.0 Ammonia Total Creatine Kinase Troponin I NT-Pro-B Natriuret Pep Total Protein 6.78 Albumin 3.59 Globulin 3.19 Albumin/Globulin Ratio 1.12 Urine Color Urine Clarity Urine pH Ur Specific [place] Urine Protein Urine Glucose (UA) Urine Ketones Urine Blood Urine Nitrite Urine Bilirubin Urine Urobilinogen Ur Leukocyte Esterase Urine Microscopic RBC Ur Squamous Epith Cells SARS CoV-2 RNA Rapid ZACHARY Orders Category Date Time Status ADMIT PATIENT INPATIENT .TO [facility] (MONITORED BED) ADMISSION 01/24/22 13:57 Active ECHOCARDIOGRAM 2D-M MODE Routine CARDIO 01/25/22 06:00 Ordered EKG-(IP & OP ONLY) DAILY CARDIO 01/25/22 06:00 Completed EKG-(IP & OP ONLY) DAILY CARDIO 01/26/22 06:00 Ordered EKG-(IP & OP ONLY) Stat CARDIO 01/24/22 13:57 Completed OXYGEN Routine CARDIO 01/24/22 13:57 Completed ACTIVITY .BR with BRP CARE 01/24/22 13:57 Active IP: INSERT SALINE LOCK ONCE CARE 01/24/22 13:57 Active Notify RT of Treatment ONCE CARE 01/24/22 13:58 Active TELEMETRY MONITORING TELE CARE 01/24/22 13:57 Active TELEMETRY MONITORING TELE CARE 01/24/22 13:59 Completed VITAL SIGNS Q8HR CARE 01/24/22 13:57 Completed LOW SODIUM DIET [2 GRAM SODIUM DIET] DIETARY 01/24/22 Dinner Ordered AMMONIA Routine LAB 01/24/22 14:26 Completed CBC W/ AUTO DIFF DAILY@0600 LAB 01/25/22 05:00 Completed CBC W/ AUTO DIFF DAILY@0600 LAB 01/26/22 06:00 Ordered CBC W/ AUTO DIFF Stat LAB 01/24/22 14:10 Completed COMPREHENSIVE METABOLIC PANEL DAILY@0600 LAB 01/25/22 05:00 Completed COMPREHENSIVE METABOLIC PANEL DAILY@0600 LAB 01/26/22 06:00 Ordered COMPREHENSIVE METABOLIC PANEL Routine LAB 01/24/22 14:10 Completed CREATINE KINASE Q8H LAB 01/24/22 14:10 Completed CREATINE KINASE Q8H LAB 01/24/22 22:00 Completed NT-PROBNP Routine LAB 01/24/22 14:10 Completed SARS COV-2 RNA RAPID ZACHARY Routine LAB 01/24/22 12:24 Completed TROPONIN I Q8H LAB 01/24/22 14:10 Completed TROPONIN I Q8H LAB 01/24/22 22:00 Completed URINALYSIS C & S IF INDICATED Stat LAB 01/24/22 15:32 Completed 0.9 % Sodium Chloride [Saline Flush] MEDS 01/24/22 21:00 Active 1 syr IVF Q8HR Acetaminophen [Tylenol] MEDS 01/24/22 13:57 Active 650 mg PO Q4H PRN Atropine Sulfate Inj [Atropine Sulfate Pfs] MEDS 01/24/22 13:57 Active 0.5 mg IVP ONCE PRN Celecoxib [Celebrex] MEDS 01/24/22 21:00 Discontinued 200 mg PO BID Celecoxib [Celebrex] MEDS 01/25/22 17:00 Active 200 mg PO BIDWM Clopidogrel Bisulfate [Plavix] MEDS 01/25/22 09:00 Active 75 mg PO DAILY Dexamethasone Sod Phosphate [Decadron] MEDS 01/25/22 21:00 Ordered 4 mg IVP Q8HR Enoxaparin Sodium [Lovenox] MEDS 01/25/22 09:00 Active 40 mg SUBCUT DAILY Famotidine [Pepcid] MEDS 01/24/22 17:00 Active 40 mg PO BIDAC Febuxostat [Uloric] MEDS 01/25/22 09:00 Active 40 mg PO DAILY Furosemide [Lasix] MEDS 01/24/22 17:00 Active 40 mg IVP BIDAC Lisinopril [Zestril] MEDS 01/25/22 09:00 Active 20 mg PO DAILY Nitroglycerin [Nitrostat] MEDS 01/24/22 13:57 Active 0.4 mg SL Q5MIN X 3 DOSES PRN Oxycodone-Acetaminophen 5-325 [Percocet 5-325] MEDS 01/25/22 18:14 Ordered 1 tab PO Q6H PRN Tamsulosin HCl [Flomax] MEDS 01/24/22 21:00 Active 0.4 mg PO BEDTIME RESUSCITATION STATUS Routine OTHERS 01/24/22 14:[address] ABDOMEN/PELVIS WO CONTRAST Routine RADS 01/24/22 14:[address] CHEST W/O CONTRAST Routine RADS 01/24/22 14:[address] LUMBAR SPINE W/O CONTRAST Routine RADS 01/24/22 14:00 Completed U/S VENOUS SCAN YASH LEGS Routine RADS 01/25/22 07:11 Completed OT CONSULTATION Routine THERAPIES 01/24/22 Ordered OT CONSULTATION Routine THERAPIES 01/25/22 10:00 Completed OT EVALUATION Routine THERAPIES 01/25/22 10:20 Ordered PT CONSULT Routine THERAPIES 01/24/22 Ordered PT CONSULT Routine THERAPIES 01/25/22 10:00 Completed PT INPATIENT EVALUATION Routine THERAPIES 01/25/22 Ordered Medications Generic Name Dose Route Start Last Admin Trade Name Freq PRN Reason Stop Dose Admin Acetaminophen 650 mg 01/24/22 13:57 Acetaminophen 325 Mg Tablet PO Q4H PRN Headache Atropine Sulfate 0.5 mg 01/24/22 13:57 Atropine Sulfate Inj 1 Mg/10 Ml Disp.Syrin IVP ONCE PRN Symptomatic Bradycardia Celecoxib 200 mg 01/25/22 17:00 01/25/22 16:34 Celecoxib 100 Mg Capsule PO 200 mg BIDWM ELVIS Administration Clopidogrel Bisulfate 75 mg 01/25/22 09:00 01/25/22 08:39 Clopidogrel Bisulfate 75 Mg Tablet PO 75 mg DAILY ELVIS Administration Dexamethasone Sodium Phosphate 4 mg 01/25/22 21:00 Dexamethasone Sod Phos 4 Mg/Ml Inj IVP Q8HR [facility] Enoxaparin Sodium 40 mg 01/25/22 09:00 01/25/22 08:39 Enoxaparin Sodium 40 Mg/0.4 Ml Syr SUBCUT 40 mg DAILY ELVIS Administration Famotidine 40 mg 01/24/22 17:00 01/25/22 16:34 Famotidine 20 Mg Tablet PO 40 mg BIDAC ELVIS Administration Febuxostat 40 mg 01/25/22 09:00 01/25/22 08:38 Febuxostat 40 Mg Tablet PO 40 mg DAILY [facility] Administration Furosemide 40 mg 01/24/22 17:00 01/25/22 17:38 Furosemide Inj 40 Mg/4 Ml Vial IVP 40 mg BIDAC ELVIS Administration Lisinopril 20 mg 01/25/22 09:00 01/25/22 08:39 Lisinopril 10 Mg Tablet PO 20 mg DAILY ELVIS Administration Nitroglycerin 0.4 mg 01/24/22 13:57 Nitroglycerin 0.4 Mg Tab.Subl SL Q5MIN X 3 DOSES PRN Chest Pain Oxycodone/Acetaminophen 1 tab 01/25/22 18:14 Oxycodone/Acetaminophen 5/325 Mg Tablet PO Q6H PRN MODERATE PAIN Sodium Chloride 1 syr 01/24/22 21:00 01/25/22 13:45 0.9% Sodium Chloride 10 Ml Disp.Syrin IVF 1 syr Q8HR ELVIS Administration Tamsulosin HCl 0.4 mg 01/24/22 21:00 01/24/22 21:07 Tamsulosin Hcl 0.4 Mg Cap.Er.24h PO 0.4 mg BEDTIME ELVIS Administration Discontinued Medications Generic Name Dose Route Start Last Admin Trade Name Freq PRN Reason Stop Dose Admin Celecoxib 200 mg 01/24/22 21:00 01/25/22 08:38 Celecoxib 100 Mg Capsule PO 200 mg BID ELVIS Administration Assessment (1) Right leg weakness: Status: Acute Code(s): R29.898 - Other symptoms and signs involving the musculoskeletal system SNOMED Code(s): 811663231 (2) Lumbar spinal stenosis: Status: Acute Code(s): M48.061 - Spinal stenosis, lumbar region without neurogenic claudication SNOMED Code(s): 31568392 (3) Leg edema: Status: Acute Code(s): R60.0 - Localized edema SNOMED Code(s): 310243121 Plan Plan: will try steroids and physical therapy has agreed to see. we discussed obtaining NS consutation but he declines. He understands further decline is possible rend ering him bound to wheelchair but still declines NS consultation. the edema is probably dependent but awaiting echo to ?consider diastolic heart failure.
[2022-01-25] MEDS: FLOMAX PO SCH (20:16)
[2022-01-25] MEDS: DECADRON IVP SCH (20:17)
[2022-01-25] MEDS: PERCOCET 5-325 PO PRN (22:01)
[2022-01-26 05:23] LABS: BASOPHILS % (AUTO) 0.2 % (0.0-3.0); HEMATOCRIT 47.2 % (42.0-52.0); HEMOGLOBIN 15.6 g/dl (14.0-18.0); IMMATURE GRANULOCYTE # (AUTO) 0.1 (0.0-1.0); IMMATURE GRANULOCYTE % (AUTO) 0.8 % (0.0-5.0); LYMPHOCYTES # (AUTO) 0.7 K/uL (0.60-3.4); LYMPHOCYTES % (AUTO) 7.9 (10.0-50.0); MEAN CORPUSCULAR HEMOGLOBIN 31.8 pg (27.0-31.0); MEAN CORPUSCULAR HGB CONC 33.1 (31.8-35.4); MEAN CORPUSCULAR VOLUME 96.1 fl (80.0-94.0); MONOCYTES # (AUTO) 0.2 K/uL (0.4-2.0); MONOCYTES % (AUTO) 2.5 (0-10); NEUTROPHILS # (AUTO) 8.1 K/ul (2.0-6.9); NEUTROPHILS % (AUTO) 88.6 % (42.2-75.2); PLATELET COUNT 234 10^3/uL (140-440); RDW COEFFICIENT OF VARIATION 13.2 % (11.6-14.8); RED BLOOD COUNT 4.91 10^6/ul (4.70-6.10); WHITE BLOOD COUNT 9.17 K/ul (4.2-10.2)
[2022-01-26 05:34] LABS: ALANINE AMINOTRANSFERASE 20.5 U/L (0-50); ALBUMIN 3.76 g/dL (3.5-5.0); ALKALINE PHOSPHATASE 91.8 U/L (56-119); ASPARTATE AMINO TRANSFERASE 22.5 U/L (17-59); BILIRUBIN,TOTAL 0.77 mg/dL (0.2-1.3); BLOOD UREA NITROGEN 27.5 mg/dL (9-20); CALCIUM 8.99 mg/dL (8.4-10.2); CARBON DIOXIDE 28.6 mmol/L (22-30.0); CHLORIDE 105.5 mmol/L (98-107); GLUCOSE 133.6 mg/dL (74-106); POTASSIUM 4.1 mmol/L (3.5-5.1); SODIUM 140.1 mmol/L (134.5-145)
[2022-01-26] MEDS: DECADRON IVP SCH ×3 (05:39→21:07)
[2022-01-26] MEDS: PEPCID PO SCH ×2 (05:39→17:22)
[2022-01-26] MEDS: LASIX IVP SCH ×2 (05:39→17:33)
[2022-01-26] MEDS: LOVENOX SUBCUT SCH (09:00)
[2022-01-26] MEDS: ULORIC PO SCH (09:00)
[2022-01-26] MEDS: PLAVIX PO SCH (09:00)
[2022-01-26] MEDS: ZESTRIL PO SCH (09:00)
[2022-01-26] MEDS: CELEBREX PO SCH ×2 (09:00→17:22)
[2022-01-26] MEDS: PERCOCET 5-325 PO PRN ×2 (10:45→21:07)
--- NOTE | 2022-01-26 13:12 | ECHO2D ---
Date of Exam: 01/26/2022 Ordering Physician: DR. FISCHER Room #: 108 Reason for Echo: WEAKNESS, SHORTNESS OF BREATH M-Mode Normal Adult Results LV Dimensions Normal Adult Results AoV Opening excursions >1.6 1.4 LVEDD-base- 3.5-5.8 5.6 Ao root dimensions 2.0-3.7 3.6 LVESD-base- 3.1-4.6 L. Atrium dimensions 1.9-3.8 4.3 Post. Wall thickness 0.8-1.1 1.1 IV septum (thickness) 0.7-1.2 1.4 Post. Wall excursion 0.72-1.3 NORMAL Septal motion NORMAL Systolic motion R. Ventricular cavity 1.5-2.0 3.5 LVEF 60% 60% Paradoxical septal wall motion NORMAL 2-D : ENLARGED RIGHT VENTRICLE AND LEFT ATRIAL CAVITIES. LEFT VENTRICLE CAVITY BORDERLINE. NORMAL LEFT VENTRICULAR CONTRACTILITY. CALCIFIC AORTIC VALVES. NO EFFUSION. NO THROMBUS. NORMAL MITRAL AND TRICUSPID VALVES. (DIFFICULT STUDY DUE TO BODY HABITUS) M-MODE: MV: NORMAL AV: CALCIFIC, SEPARATION OF LEAFLETS NOTED TV: NORMAL PV: CHAMBER SIZE: ENLARGED RIGHT VENTRICLE AND LEFT ATRIAL CAVITIES. WALL MOTION: NORMAL PERICARDIUM: NORMAL INTERPRETATION: 1. LEFT VENTRICULAR HYPERTROPHY WITH ENLARGED LEFT ATRIAL CAVITY. 2. ENLARGED RIGHT VENTRICLE CAVITY. 3. BORDERLINE LEFT VENTRICLE CAVITY. 4. CALCIFIC AORTIC VALVE LEAFLETS, GOOD SEPARATION NOTED. 5. NORMAL LEFT VENTRICULAR CONTRACTILITY. MTDD
--- NOTE | 2022-01-26 17:26 | PCM.PROG ---
Date Seen by Provider: 01/26/22 Time Seen by Provider: 17:22 Subjective: Mr Daniel feels better--has more mobility and less leg weakness--walked x2 with PT today--no nursing staff concerns Objective: Vitals: T=97.8 F, P=101, R=20, IR=965/70, SPO2=95 HEENT: [] Neck: [supple] Lungs: [clear] CVS: rrr[] Abdomen: [nt] Extremities: [less edema] Neurological: [intact] Skin: [] Lab/Tests/Diagnostic Imaging: [labs revieswed--echo results noted] (1) Right leg weakness: Status: Acute Code(s): R29.898 - Other symptoms and signs involving the musculoskeletal system SNOMED Code(s): 953523192 (2) Lumbar spinal stenosis: Status: Acute Code(s): M48.061 - Spinal stenosis, lumbar region without neurogenic claudication SNOMED Code(s): 65262338 (3) Leg edema: Status: Acute Code(s): R60.0 - Localized edema SNOMED Code(s): 109624616 Plan: will decrease iv steroids--continue p.t.---ask soc services to assess for home needs (?hospital bed)--?home or monday--will need case management input
[2022-01-26] MEDS: FLOMAX PO SCH (21:07)
[2022-01-27 05:19] LABS: BASOPHILS % (AUTO) 0.1 % (0.0-3.0); EOSINOPHILS % (AUTO) 0.1 % (0.0-7.0); HEMATOCRIT 46.9 % (42.0-52.0); HEMOGLOBIN 15.6 g/dl (14.0-18.0); IMMATURE GRANULOCYTE # (AUTO) 0.2 (0.0-1.0); IMMATURE GRANULOCYTE % (AUTO) 1.1 % (0.0-5.0); MEAN CORPUSCULAR HEMOGLOBIN 31.8 pg (27.0-31.0); MEAN CORPUSCULAR HGB CONC 33.3 (31.8-35.4); MEAN CORPUSCULAR VOLUME 95.7 fl (80.0-94.0); MONOCYTES # (AUTO) 0.8 K/uL (0.4-2.0); MONOCYTES % (AUTO) 4.6 (0-10); NEUTROPHILS # (AUTO) 14.7 K/ul (2.0-6.9); NEUTROPHILS % (AUTO) 88.1 % (42.2-75.2); PLATELET COUNT 266 10^3/uL (140-440); RDW COEFFICIENT OF VARIATION 13.3 % (11.6-14.8); WHITE BLOOD COUNT 16.61 K/ul (4.2-10.2)
[2022-01-27] MEDS: LASIX IVP SCH ×2 (05:37→17:22)
[2022-01-27] MEDS: PEPCID PO SCH ×2 (05:37→17:31)
[2022-01-27 05:41] LABS: ALANINE AMINOTRANSFERASE 22.1 U/L (0-50); ALBUMIN 3.69 g/dL (3.5-5.0); ALKALINE PHOSPHATASE 81.6 U/L (56-119); ASPARTATE AMINO TRANSFERASE 20.8 U/L (17-59); BILIRUBIN,TOTAL 0.62 mg/dL (0.2-1.3); BLOOD UREA NITROGEN 45.5 mg/dL (9-20); CALCIUM 8.9 mg/dL (8.4-10.2); CARBON DIOXIDE 26.5 mmol/L (22-30.0); CHLORIDE 103.9 mmol/L (98-107); CREATININE 1.2 mg/dL (0.60-1.10); GLUCOSE 132.2 mg/dL (74-106); POTASSIUM 3.73 mmol/L (3.5-5.1); SODIUM 137.4 mmol/L (134.5-145); TOTAL PROTEIN 6.79 g/dL (6.3-8.2)
[2022-01-27] MEDS: CELEBREX PO SCH ×2 (08:17→17:31)
[2022-01-27] MEDS: ULORIC PO SCH (08:17)
[2022-01-27] MEDS: PLAVIX PO SCH (08:18)
[2022-01-27] MEDS: ZESTRIL PO SCH (08:18)
[2022-01-27] MEDS: LOVENOX SUBCUT SCH (08:23)
[2022-01-27] MEDS: DECADRON IVP SCH (09:09)
[2022-01-27] MEDS: PERCOCET 5-325 PO PRN ×2 (14:17→22:46)
--- NOTE | 2022-01-27 17:38 | PCM.PROG ---
Date Seen by Provider: 01/27/22 Time Seen by Provider: 17:35 Subjective: mr mancini continues to improve in terms of his mobility and discomfort--he thinks he is ready to go home tomorrow but declines home therapy Objective: Vitals: T=97.0 F, P=95, R=18, IK=636/72, SPO2=94 HEENT: [] Neck: [supple] Lungs: [lear] CVS: [rrr] Abdomen: [soft nt] Extremities: [] Neurological: [intact] Skin: [] Lab/Tests/Diagnostic Imaging: [] (1) Right leg weakness: Status: Acute Code(s): R29.898 - Other symptoms and signs involving the musculoskeletal system SNOMED Code(s): 627182139 (2) Lumbar spinal stenosis: Status: Acute Code(s): M48.061 - Spinal stenosis, lumbar region without neurogenic claudication SNOMED Code(s): 84288443 (3) Leg edema: Status: Acute Code(s): R60.0 - Localized edema SNOMED Code(s): 817861003 Plan: change steroids to oral---lasix to oral--plan on discharging tomorow--he will benefit from hospital bed, wheelchair and bedside commode due to his lower extremity weakness and back pain--
[2022-01-27] MEDS: FLOMAX PO SCH (20:05)
[2022-01-28 05:22] LABS: BASOPHILS % (AUTO) 0.2 % (0.0-3.0); HEMATOCRIT 46.4 % (42.0-52.0); HEMOGLOBIN 15.5 g/dl (14.0-18.0); IMMATURE GRANULOCYTE # (AUTO) 0.2 (0.0-1.0); IMMATURE GRANULOCYTE % (AUTO) 1.1 % (0.0-5.0); LYMPHOCYTES # (AUTO) 1.4 K/uL (0.60-3.4); LYMPHOCYTES % (AUTO) 8.7 (10.0-50.0); MEAN CORPUSCULAR HEMOGLOBIN 31.9 pg (27.0-31.0); MEAN CORPUSCULAR HGB CONC 33.4 (31.8-35.4); MEAN CORPUSCULAR VOLUME 95.5 fl (80.0-94.0); MONOCYTES # (AUTO) 1.4 K/uL (0.4-2.0); NEUTROPHILS # (AUTO) 12.9 K/ul (2.0-6.9); PLATELET COUNT 286 10^3/uL (140-440); RDW COEFFICIENT OF VARIATION 13.4 % (11.6-14.8); RED BLOOD COUNT 4.86 10^6/ul (4.70-6.10); WHITE BLOOD COUNT 15.91 K/ul (4.2-10.2)
[2022-01-28 05:39] LABS: ALANINE AMINOTRANSFERASE 24.6 U/L (0-50); ALBUMIN 3.59 g/dL (3.5-5.0); ALKALINE PHOSPHATASE 74.3 U/L (56-119); ASPARTATE AMINO TRANSFERASE 21.5 U/L (17-59); BILIRUBIN,TOTAL 0.58 mg/dL (0.2-1.3); CALCIUM 8.56 mg/dL (8.4-10.2); CARBON DIOXIDE 25.2 mmol/L (22-30.0); CREATININE 1.42 mg/dL (0.60-1.10); POTASSIUM 3.61 mmol/L (3.5-5.1); SODIUM 138.8 mmol/L (134.5-145); TOTAL PROTEIN 6.66 g/dL (6.3-8.2)
[2022-01-28 05:46] LABS: BLOOD UREA NITROGEN 62.9 mg/dL (9-20)
[2022-01-28] MEDS: PEPCID PO SCH ×2 (06:07→17:26)
[2022-01-28] MEDS ORDERED: LASIX TAB PO SCH (06:30)
[2022-01-28] MEDS: ULORIC PO SCH (08:38)
[2022-01-28] MEDS: CELEBREX PO SCH ×2 (08:38→17:26)
[2022-01-28] MEDS: PLAVIX PO SCH (08:38)
[2022-01-28] MEDS: ZESTRIL PO SCH (08:39)
[2022-01-28] MEDS: PERCOCET 5-325 PO PRN (08:44)
[2022-01-28] MEDS ORDERED: SODIUM CHLORIDE 1,000 ML IV ONE (08:46)
[2022-01-28] MEDS: LOVENOX SUBCUT SCH (08:47)
[2022-01-28] MEDS ORDERED: DECADRON IVP SCH (09:00)
[2022-01-28] MEDS ORDERED: SODIUM CHLORIDE 1,000 ML IV SCH (09:00)
[2022-01-28 16:28] VITALS: BP 117/82; TEMP 97.3
[2022-01-28 16:30] LABS: BLOOD UREA NITROGEN 59.3 mg/dL (9-20); CALCIUM 8.79 mg/dL (8.4-10.2); CARBON DIOXIDE 22.5 mmol/L (22-30.0); CHLORIDE 102.7 mmol/L (98-107); CREATININE 1.35 mg/dL (0.60-1.10); GLUCOSE 115.3 mg/dL (74-106); POTASSIUM 3.82 mmol/L (3.5-5.1); SODIUM 137.3 mmol/L (134.5-145)
--- NOTE | 2022-02-06 08:58 | PCM.DC ---
Final Diagnosis: lumbar spinal stenosis, leroy Physical Exam Appearance: Well-appearing Ill-appearing: None Pain Distress: Mild Eyes: RIGOBERTO, EOMI and Conjunctiva clear ENT: Ears normal, Nose normal and Oropharynx normal Neck: Supple Respiratory: Airway patent, Breath sounds clear and Breath sounds equal Cardiovascular: RRR, Pulses normal, No rub and No murmur GI/: Soft, Nontender, No masses and Bowel sounds normal Musculoskeletal: Normal strength, ROM intact, No edema and No calf tenderness Skin: Warm, Dry and Normal color Neurological: Sensation intact, Motor intact, Reflexes intact, Cranial nerves intact, Alert and Oriented Psychiatric: Affect appropriate and Mood appropriate (1) Right leg weakness: Status: Acute Code(s): R29.898 - Other symptoms and signs involving the musculoskeletal system SNOMED Code(s): 580794318 (2) Lumbar spinal stenosis: Status: Acute Code(s): M48.061 - Spinal stenosis, lumbar region without neurogenic claudication SNOMED Code(s): 83711162 (3) Leg edema: Status: Acute Code(s): R60.0 - Localized edema SNOMED Code(s): 108278254 Reason for Hospitalization: worsening lower back pain, leg weakness Prognosis/Condition at Discharge: fair Medications at Discharge: see discharge list Lab/Diagnostics: see flow Follow-ups: one week with dr amin Discharge Disposition: Home Hospital Course: his back pain and mobility improved and steroids and physical therapy--his renal function worsening with diuretics--these were held as well as bp meds and will be followed as an outpatient. Plan: hold lasix and zestril---will refer to pain management--i wanted to refer to neurosurgery but the patient declined.
== END 2022-01-28 17:35 | disposition home or self-care (01) | DRG 556 ==
LOC: LAB 12:09 → MEDSURG A 13:41
PROVIDERS: ADMIT Family Medicine; ATTEND Family Medicine
DX: M48.061 Spinal stenosis, lumbar region without neurogenic claudication; M19.90 Unspecified osteoarthritis, unspecified site; Z79.899 Other long term (current) drug therapy; R60.0 Localized edema; R29.898 Other symptoms and signs involving the musculoskeletal system; Z20.822 Contact with and (suspected) exposure to COVID-19; F17.220 Nicotine dependence, chewing tobacco, uncomplicated; M62.81 Muscle weakness (generalized); R26.81 Unsteadiness on feet; Z91.81 History of falling; Z86.73 Personal history of transient ischemic attack (TIA), and cerebral infarction without residual deficits; Z51.81 Encounter for therapeutic drug level monitoring; I10 Essential (primary) hypertension